=== PATIENT | female | born 1950 | race Caucasian/White ===

== ENCOUNTER → 2016-08-07 | Outpatient (CLI) | payer MEDICARE, BC ==
[2015-08-22 14:14] VITALS: BP 125/71
[~2016-08-07] MED LIST: CHOL400C PO; CHON250C PO; GLUC100018 PO; LORA10TA68 PO; MONT10TA9 PO; MULT-650 PO
--- NOTE | 2016-08-07 10:18 | KCIC ---
PROCEDURE Thyroid ultrasound dated 08/07/2016. HISTORY Thyroid nodule. TECHNIQUE Routine sonographic imaging performed. COMPARISON 01/26/2016. FINDINGS Right lobe thyroid gland measures 4.7 x 1.6 x 1.8 centimeter. Left lobe measures 4.3 x 1.8 x 1.8 centimeter. Small isoechoic nodule at the upper pole left thyroid lobe measures 10 millimeters maximum dimension, similar to prior study. Previous described smaller nodule at the midpole is no longer seen. The gland remains somewhat heterogeneous in echogenicity and there is mild hypervascularity. No new nodular lesion or mass. IMPRESSION - Indeterminate solid nodule at the upper pole left thyroid gland, not significantly changed from prior study. - Heterogeneous gland with mild hyperemia, nonspecific. Consider acute or chronic thyroiditis or early multinodular goiter. Electronically signed by: Tien Hatch (Aug 07, 2016 10:17:43)
== END | disposition home or self-care (01) ==
LOC: KCIC US 08:58
PROVIDERS: ATTEND Otolaryngology
DX: E04.2 Nontoxic multinodular goiter (principal)
CPT/HCPCS: 76536

== ENCOUNTER → 2017-08-13 | Outpatient (CLI) | payer MEDICARE, BC | END | disposition home or self-care (01) | LOC: KCIC US 08:47 | DX: E04.2 Nontoxic multinodular goiter (principal) | CPT/HCPCS: 76536 ==

== ENCOUNTER → 2018-08-25 | Outpatient (CLI) | payer MEDICARE, BC ==
[2015-08-22 14:14] VITALS: BP 125/71
--- NOTE | 2018-08-25 15:22 | KCIC ---
Exam is an: Ultrasound thyroid HISTORY: History of thyroid nodule follow-up COMPARISON: 08/13/2017 FINDINGS: The right lobe of the thyroid gland measures 4.8 x 1.8 x 2.2 cm. The left lobe of thyroid gland measures 5.5 x 1.4 x 2.0 cm. The echogenicity of the thyroid gland is heterogenous. Tiny subcentimeter nodules identified in the right and left lobes of the thyroid gland with the largest measuring 6 mm in the inferior left lobe of the thyroid gland similar to prior exam. IMPRESSION: Multiple tiny hypoechoic subcentimeter nodules identified in the right and left lobes of thyroid gland with the largest measuring 6 mm in the left lobe similar to prior exam. Electronically signed by: Aniceto Ohara MD (08/25/2018 3:18 PM) [id number]
== END | disposition home or self-care (01) ==
LOC: KCIC US 09:05
PROVIDERS: ATTEND Otolaryngology
DX: E04.2 Nontoxic multinodular goiter (principal); Z92.3 Personal history of irradiation
CPT/HCPCS: 76536

== ENCOUNTER → 2019-10-12 | Outpatient (CLI) | payer MEDICARE, BC ==
[2015-08-22 14:14] VITALS: BP 125/71
[~2019-10-12] MED LIST changes: +MONT10TA49 PO; -MONT10TA9 PO
--- NOTE | 2019-10-12 13:01 | RAD ---
Thyroid ultrasound compared to similar exam dated 08/25/2018 for multiple thyroid nodules. TECHNIQUE: Real-time grayscale and color Doppler evaluation of the thyroid gland is performed. The thyroid gland is diffusely heterogeneous. There is mildly increased vascularity diffusely. There is redemonstration of 3 subcentimeter nodules, one in the upper pole the right thyroid lobe, one in the central pole the left thyroid lobe, and one in the inferior pole the left thyroid lobe. These are all unchanged in size and appearance from prior examination. No new thyroid nodules are identified. No suspicious adenopathy is seen. IMPRESSION: 1. Stable thyroid ultrasound study with no new or suspicious thyroid nodules. Electronically signed by: Martin Lino MD (10/12/2019 12:58 PM) [id number]
== END | disposition home or self-care (01) ==
LOC: US 11:36
PROVIDERS: ATTEND Otolaryngology
DX: E04.2 Nontoxic multinodular goiter (principal); Z92.3 Personal history of irradiation
CPT/HCPCS: 76536

== ENCOUNTER → 2020-02-05 | Outpatient (CLI) | payer MEDICARE, BC ==
[2015-08-22 14:14] VITALS: BP 125/71
--- NOTE | 2020-02-05 13:23 | KCIC ---
EXAM: Dual energy x-ray absorptiometry (DEXA). HISTORY: Osteopenia. COMPARISON: 05/06/2015. TECHNIQUE: Dual energy x-ray absorptiometry of the lumbar spine and left hip was performed. Calculation of bone mineral density based on standard deviations above or below the expected young adult normal value (T-score) was completed. FINDINGS: The average bone mineral density in the 1st through 4th lumbar vertebrae is 0.922 g/cmxcm, corresponding with a T-score of -1.1. The average total bone mineral density in the left hip is 0.769 g/cmxcm, corresponding with a T-score of -1.4. IMPRESSION: Findings are within the range of osteopenia with relation to the spine and left hip with -5.4 percent change with relation of the left hip and +4.2 percent change with relation to the spine. Note: Definitions established by the World Health Organization: 1. Normal: T-score is -1.0 or above. 2. Osteopenia: T-score is between -1.0 and -2.5 . 3. Osteoporosis: T-score is -2.5 or below. Electronically signed by: Kianna Kasper MD (02/05/2020 1:20 PM) [facility]
== END ==
LOC: KCIC DEXA 12:26
PROVIDERS: ATTEND Obstetrics & Gynecology
DX: M85.80 Other specified disorders of bone density and structure, unspecified site (principal); Z78.0 Asymptomatic menopausal state
CPT/HCPCS: 77080

== ENCOUNTER → 2020-10-19 | Outpatient (CLI) | payer MEDICARE, BC ==
[2015-08-22 14:14] VITALS: BP 125/71
--- NOTE | 2020-10-20 08:40 | KCIC ---
Thyroid ultrasound 10/19/2020 CLINICAL HISTORY: History of thyroid nodules. TECHNIQUE: A real-time ultrasound examination of the thyroid gland was performed. Multiple images wer e obtained. FINDINGS: Comparison study is dated 10/12/2019. The thyroid gland is enlarged and heterogeneous. The right lobe of the thyroid gland measures 4.4 x 1 .7 x 1.8 cm in longitudinal, transverse, and AP dimensions. The left lobe of the thyroid gland measur es 5.8 x 1.5 x 1.7 cm in size. The isthmus measures 3 mm in thickness. A 5 mm hypoechoic nodule is se en in the superior/mid aspect of the right thyroid gland. A 5 mm hypoechoic nodule is seen within the superior aspect of the left lobe of thyroid gland. A 5 mm hypoechoic nodule is seen within the infer ior aspect of the left lobe of the thyroid gland. These are unchanged from the previous examination. No new nodule is seen. IMPRESSION: Findings are again seen consistent with a multinodular goiter, unchanged since the previo us examination. No new nodule is seen. Electronically signed by: Burt Eaton MD (10/20/2020 8:38 AM) [id number]
== END ==
LOC: KCIC US 14:43
PROVIDERS: ATTEND Otolaryngology
DX: E04.2 Nontoxic multinodular goiter (principal); Z92.3 Personal history of irradiation
CPT/HCPCS: 76536